=== PATIENT | male | born 1970 | race Caucasian/White ===

== ENCOUNTER 2019-03-10 23:56 | Emergency (ER) | payer MEDICAID, OTHER ==
[2019-03-11] MEDS: FAMOTIDINE 20 MG TAB PO (00:43)
[2019-03-11] MEDS: IBUPROFEN 800 MG TAB PO (00:43)
== END 2019-03-11 02:53 | disposition home or self-care (01) ==
LOC: FTE 23:56
DX: M15.1 Heberden's nodes (with arthropathy) (principal)
CPT/HCPCS: 73130; 73130-RT; 99283-25